=== PATIENT | female | born 1975 | race African-American/Black ===

== ENCOUNTER → 2016-05-22 | Outpatient (CLI) | payer MEDICARE, SELFPAY ==
[~2016-05-22] MED LIST: LEVAQUIN750 MG PO; METOPROLOL TART25 MG PO
== END ==
LOC: NM 13:52
DX: R10.11 Right upper quadrant pain (principal); R11.0 Nausea; Z88.0 Allergy status to penicillin
CPT/HCPCS: 78226; A9537

== ENCOUNTER 2016-09-06 14:02 | Inpatient (IN) | payer MEDICARE, SELFPAY ==
[~2016-09-06] VITALS: Ht 157.5 cm; Wt 45.6 kg
[2016-09-06 16:15] LABS: HEMOGLOBIN 13.8 gm/dl (12.3-15.3); RED BLOOD COUNT 4.99 M/UL (4.00-5.10); WHITE BLOOD COUNT 13.1 K/UL (4.5-11.0)
[2016-09-06 16:45] LABS: BUN/CREATININE RATIO 18 (0-10)
[2016-09-07] MEDS ORDERED: METOPROLOL TART25 MG PO (01:17)
[2016-09-07 06:16] LABS: RED BLOOD COUNT 4.78 M/UL (4.00-5.10); WHITE BLOOD COUNT 12.7 K/UL (4.5-11.0)
[2016-09-07 06:33] LABS: BUN/CREATININE RATIO 26 (0-10)
[2016-09-07 15:26] LABS: BODY FLUID SOURCE PLEURAL
[2016-09-07 15:51] LABS: TOTAL PROTEIN, BODY FLUID 3.7 gm/dL
[2016-09-07 15:52] LABS: LDH, BODY FLUID 484 U/L
[2016-09-08 05:24] LABS: HEMOGLOBIN 11.5 gm/dl (12.3-15.3); RED BLOOD COUNT 4.21 M/UL (4.00-5.10)
[2016-09-08 05:43] LABS: BUN/CREATININE RATIO 32 (0-10)
[2016-09-08] MEDS ORDERED: LEVAQUIN750 MG PO (16:09)
== END 2016-09-08 17:00 | disposition home or self-care (01) | DRG 871 ==
LOC: ER1 14:02 → MED SURG 4 22:10 → ZEROF 22:10 → MED SURG 4 23:47
PROVIDERS: Emergency Medicine; Internal Medicine; ADMIT Internal Medicine
PROC: 0W9B00Z Drainage of Left Pleural Cavity with Drainage Device, Open Approach (ICD-10-PCS; principal; 2016-09-07)
DX: A41.9 Sepsis, unspecified organism (principal); J96.01 Acute respiratory failure with hypoxia; J18.9 Pneumonia, unspecified organism; J90 Pleural effusion, not elsewhere classified; J98.11 Atelectasis; N39.0 Urinary tract infection, site not specified; I05.2 Rheumatic mitral stenosis with insufficiency; I07.1 Rheumatic tricuspid insufficiency; F17.210 Nicotine dependence, cigarettes, uncomplicated; B96.1 Klebsiella pneumoniae [K. pneumoniae] as the cause of diseases classified elsewhere; R01.1 Cardiac murmur, unspecified; Z88.0 Allergy status to penicillin; Z88.2 Allergy status to sulfonamides; Z82.49 Family history of ischemic heart disease and other diseases of the circulatory system
CPT/HCPCS: 36415; 36600; 71010; 71020; 71250; 80048; 80053; 81001; 82150; 82550; 82553; 82800; 82803; 82945; 83605; 83615; 83735; 83874; 83880; 83986; 84075; 84100; 84157; 84484; 85025; 85027; 87015; 87040; 87070; 87077; 87081; 87086; 87102; 87116; 87186; 87205; 89051; 93005; 94640; 94664; 96361; 96374; 96375; 99285; J1885; J1956; J2185; J7050; J7070